=== PATIENT | female | born 2000 | race Two or more races ===

== ENCOUNTER 2021-07-23 13:35 | Outpatient (CLI) | payer OTHER | END 2021-07-23 15:00 | disposition home or self-care (01) | LOC: PRENATAL 13:35 | PROVIDERS: ATTEND Obstetrics & Gynecology Maternal & Fetal Medicine | DX: O35.3XX0 Maternal care for (suspected) damage to fetus from viral disease in mother, not applicable or unspecified (principal); O99.891 Other specified diseases and conditions complicating pregnancy ==

== ENCOUNTER 2021-08-09 15:25 | Emergency (ER) | payer OTHER ==
[~2021-08-09] VITALS: Ht 170.2 cm; Wt 65.8 kg
[2021-08-09] MEDS ORDERED: PRENATAL + DHA1 EAC1 PO (15:35)
[2021-08-09] MEDS ORDERED: BUTALBIT-ACETA1 EACH PO (19:17)
== END 2021-08-09 19:21 | disposition home or self-care (01) ==
LOC: ER 15:25
DX: O26.892 Other specified pregnancy related conditions, second trimester (principal); Z3A.22 22 weeks gestation of pregnancy; R51.9 Headache, unspecified
CPT/HCPCS: 70544

== ENCOUNTER 2021-09-03 16:14 | Outpatient (CLI) | payer OTHER ==
[~2021-09-03 16:14] MED LIST: BUTALBIT-ACETA1 EACH PO; PRENATAL + DHA1 EAC1 PO
== END 2021-09-03 16:20 | disposition home or self-care (01) ==
LOC: LAB 16:14
PROVIDERS: ATTEND Obstetrics & Gynecology
DX: O60.02 Preterm labor without delivery, second trimester (principal); Z34.82 Encounter for supervision of other normal pregnancy, second trimester

== ENCOUNTER 2021-09-10 08:53 | Emergency (ER) | payer OTHER ==
[~2021-09-10] VITALS: Ht 167.6 cm; Wt 65.8 kg
== END 2021-09-10 12:06 | disposition home or self-care (01) ==
LOC: ER 08:53
DX: U07.1 COVID-19 (principal); B34.9 Viral infection, unspecified

== ENCOUNTER 2021-09-12 13:28 | Inpatient (IN) | payer OTHER ==
[~2021-09-12] VITALS: Ht 167.6 cm; Wt 65.8 kg
== END 2021-09-17 18:27 | disposition home or self-care (01) | DRG 831 ==
LOC: ER 13:28 → EMR PED 13:35 → ER 13:35 → LDR 18:49 → OB/GYN 18:49 → LDR 09-13
PROVIDERS: ADMIT Obstetrics & Gynecology; ATTEND Obstetrics & Gynecology
PROC: 8E0ZXY6 Isolation (ICD-10-PCS; principal; 2021-09-12)
PROC: 3E0G7GC Introduction of Other Therapeutic Substance into Upper GI, Via Natural or Artificial Opening (ICD-10-PCS; 2021-09-12)
PROC: 4A1HXCZ Monitoring of Products of Conception, Cardiac Rate, External Approach (ICD-10-PCS; 2021-09-12)
DX: O98.512 Other viral diseases complicating pregnancy, second trimester (principal); U07.1 COVID-19; J45.901 Unspecified asthma with (acute) exacerbation; O26.892 Other specified pregnancy related conditions, second trimester; Z3A.28 28 weeks gestation of pregnancy

== ENCOUNTER 2021-10-23 08:20 | Outpatient (CLI) | payer OTHER | END 2021-10-23 09:20 | disposition home or self-care (01) | LOC: PRENATAL 08:20 | PROVIDERS: ATTEND Obstetrics & Gynecology Maternal & Fetal Medicine | DX: O26.849 Uterine size-date discrepancy, unspecified trimester (principal); O35.0XX0 Maternal care for (suspected) central nervous system malformation in fetus, not applicable or unspecified; Z3A.33 33 weeks gestation of pregnancy ==

== ENCOUNTER 2021-11-26 13:15 | Inpatient (IN) | payer OTHER ==
[~2021-11-26] VITALS: Ht 167.6 cm; Wt 76.2 kg
== END 2021-12-04 17:27 | disposition home or self-care (01) | DRG 807 ==
LOC: LDR 12-02 03:05 → OB/GYN 12-02 04:33 → LDR 12-02 07:59 → OB/GYN 12-02 16:38
PROVIDERS: ADMIT Obstetrics & Gynecology; ATTEND Obstetrics & Gynecology
PROC: 10E0XZZ Delivery of Products of Conception, External Approach (ICD-10-PCS; principal; 2021-12-02)
PROC: 4A1HXCZ Monitoring of Products of Conception, Cardiac Rate, External Approach (ICD-10-PCS; 2021-12-02)
DX: O42.02 Full-term premature rupture of membranes, onset of labor within 24 hours of rupture (principal); Z3A.39 39 weeks gestation of pregnancy; Z37.0 Single live birth; Z20.822 Contact with and (suspected) exposure to COVID-19